=== PATIENT | female | born 2000 | race Caucasian/White ===

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

== ENCOUNTER 2019-03-26 13:12 | Emergency (ER) | payer SELFPAY ==
[~2019-03-26] VITALS: Ht 167.6 cm; Wt 77.1 kg
[2019-03-26 13:18] VITALS: BP 135/52
--- NOTE | 2019-03-26 13:19 | NUR ---
TRIAGE COMPLETE. VSS. RETURNED TO LOBBY TO WAIT FOR BED IN ED.
--- NOTE | 2019-03-26 14:40 | NUR ---
PATIENT AMBULATED TO CHAIR-D
[2019-03-26 15:19] VITALS: BP 109/71
--- NOTE | 2019-03-26 15:21 | NUR ---
18/F PRESENTS TO ED, C/O L EAR PAIN, FEVER/CHILLS, MILD COUGH. PT AWAKE AND ALERT, SKIN NORMAL COLOR WARM AND DRY, RR EVEN AND UNLABORED. DENIES MED HX OR RX.
--- NOTE | 2019-03-26 15:25 | NUR ---
Patient discharged with v/s stable. Written and verbal after care instructions given and explained. Patient alert, oriented and verbalized understanding of instructions. Ambulatory with steady gait. All questions addressed prior to discharge. ID band removed. Patient advised to follow up with PMD. Rx of IBUPROFEN, AUGMENTIN given. Patient educated on indication of medication including possible reaction and side effects. Opportunity to ask questions provided and answered.
== END 2019-03-26 15:25 | disposition home or self-care (01) ==
LOC: MED 13:12
DX: H66.92 Otitis media, unspecified, left ear (principal); I88.9 Nonspecific lymphadenitis, unspecified
CPT/HCPCS: 99283